=== PATIENT | male | born 1975 | race Asian ===

== ENCOUNTER 2016-11-29 11:54 | Emergency (ER) | payer OTHER ==
[~2016-11-29] VITALS: Ht 177.8 cm; Wt 87.1 kg
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
[2016-11-29] MEDS ORDERED: Tetanus/Diptheria/Pertussis Vaccine 0.5ml Syr IM ONE (12:15)
[2016-11-29] MEDS ORDERED: Bacitracin Oint UD TOPIC ONE ×2 (12:15)
--- NOTE | 2016-11-29 12:48 | Diagnostic Imaging Report ---
Indication: Headache Technique: Contiguous 5 mm thick transaxial imaging of the head obtained in a Siemens Sensation [address] scanner. Soft tissue and bone windows generated. Total Dose length Product (DLP): [address] Dose Index Volume (CTDIvol): 70.38, 0.15 mGy Comparison: none Findings: The size and configuration of the cortical sulci, basal cisterns, and ventricles are within normal limits for age. There is no mass effect, midline shift, or edema identified. There is no evidence of acute hemorrhage or abnormal intra-axial or extra-axial fluid collections. There is left periorbital soft tissue swelling. Impression: No mass effect, edema or acute bleed. Left periorbital soft tissue contusion The CT scanner at [facility] is accredited by the [employer] and the scans are performed using dose optimization techniques as appropriate to a performed exam including Automatic Exposure control.
[2016-11-29 12:49] VITALS: BP 151/88
--- NOTE | 2016-11-29 12:53 | Diagnostic Imaging Report ---
Indication: Trauma. Facial pain Technique: Continuous helical transaxial imaging of the maxillofacial structures obtained without intravenous contrast administration. Coronal 2-D reformats were also obtained. Study obtained in a Siemens sensation [address] Total Dose length Product (DLP): [address] Dose Index Volume (CTDIvol): 28.19, 0.15 mGy Comparison: None Findings: There is left nerve of soft tissue swelling present. There is no acute fracture seen. Paranasal sinuses are clear except for fluid retention cyst in the right maxillary sinus which is not trauma related. The globes are symmetric. There is no proptosis or retrobulbar are infiltration or hemorrhage. Mastoids are clear bilaterally. Impression: No acute fracture identified. Left paranasal soft tissue contusion. 2.4 cm right maxillary fluid retention cyst The CT scanner at is accredited by the [employer] and the scans are performed using dose optimization techniques as appropriate to a performed exam including Automatic Exposure control.
[2016-11-29] MEDS ORDERED: AUGMENTIN 875-1 EAC1 ORAL (13:06)
[2016-11-29] MEDS ORDERED: BACITRACIN-P28.35 GM TP (13:06)
[2016-11-29] MEDS ORDERED: TYLENOL EXTRA500 MG ORAL (13:06)
[2016-11-29 13:17] VITALS: BP 131/87
[2016-11-29 13:18] VITALS: BP 131/87
== END 2016-11-29 13:20 | disposition home or self-care (01) ==
LOC: EMR 12:06
DX: S05.12XA Contusion of eyeball and orbital tissues, left eye, initial encounter (principal); H57.12 Ocular pain, left eye; S81.859A Open bite, unspecified lower leg, initial encounter; S20.312A Abrasion of left front wall of thorax, initial encounter; S81.832A Puncture wound without foreign body, left lower leg, initial encounter; S81.831A Puncture wound without foreign body, right lower leg, initial encounter; S80.212A Abrasion, left knee, initial encounter; S80.211A Abrasion, right knee, initial encounter; S70.312A Abrasion, left thigh, initial encounter; S70.311A Abrasion, right thigh, initial encounter; S00.81XA Abrasion of other part of head, initial encounter; Z20.3 Contact with and (suspected) exposure to rabies; Z23 Encounter for immunization; Y04.8XXA Assault by other bodily force, initial encounter; Y93.9 Activity, unspecified; Y92.9 Unspecified place or not applicable
CPT/HCPCS: 70450; 70486; 90471; 90715; 99284